=== PATIENT | male | born 1970 | race Caucasian/White ===

== ENCOUNTER → 2017-05-29 | Outpatient (CLI) | payer BC ==
[2017-05-29 13:10] LABS: HCT 42.5 % (39.0-53.0); HGB 13.1 gm/dL (13.0-17.5); Hypochromasia Slight; MCH 25.8 pg (25.0-35.0); MCHC 30.7 g/dL (31.0-37.0); MCV 84.1 fL (80.0-100.0); Mean Platelet Volume 8.6; Platelet Count 140 k/uL (150-450); RBC 5.06 m/uL (4.30-5.90); RDW 13.6 % (11.5-15.5); WBC 5.6 k/uL (3.8-10.6)
[2017-05-29 13:21] LABS: ALT 46 U/L (21-72); AST 26 U/L (17-59); Albumin 3.8 g/dL (3.5-5.0); Alkaline Phosphatase 68 U/L (38-126); Anion Gap 11 mmol/L; Blood Urea Nitrogen 30 mg/dL (9-20); Calcium 9.3 mg/dL (8.4-10.2); Carbon Dioxide 30 mmol/L (22-30); Chloride 101 mmol/L (98-107); Glucose 132 mg/dL (74-99); Potassium 3.8 mmol/L (3.5-5.1); Sodium 142 mmol/L (137-145); Total Bilirubin 1.6 mg/dL (0.2-1.3); Total Protein 6.5 g/dL (6.3-8.2)
[2017-05-29 14:39] LABS: Erythrocyte Sedimentation Rate 3 mm/hr (0-15)
[2017-05-29 20:30] LABS: Gliadin AB IgA, Unit 1.8 U/mL
[2017-05-30 11:31] LABS: Anti-Endomysial IgA Antibody <1:10 Titer (<1:10)
[2017-06-03 16:25] LABS: Selenium 95 mcg/L (63-160)
== END | disposition home or self-care (01) ==
LOC: LABWHC1 12:24
PROVIDERS: ATTEND Internal Medicine
DX: I42.9 Cardiomyopathy, unspecified (principal)
CPT/HCPCS: 36415; 80053; 82784; 83516; 84255; 84443; 85027; 85652; 86038; 86255

== ENCOUNTER → 2017-06-13 | Outpatient (CLI) | payer BC ==
[2017-06-13 09:44] LABS: Anion Gap 12 mmol/L; Blood Urea Nitrogen 26 mg/dL (9-20); Carbon Dioxide 27 mmol/L (22-30); Chloride 106 mmol/L (98-107); Sodium 145 mmol/L (137-145)
== END | disposition home or self-care (01) ==
LOC: LABWHC1 09:01
PROVIDERS: ATTEND Internal Medicine Cardiovascular Disease
DX: I50.20 Unspecified systolic (congestive) heart failure (principal)
CPT/HCPCS: 36415; 80051; 82565; 84520

== ENCOUNTER → 2017-06-27 | Outpatient (CLI) | payer BC ==
[2017-06-27 14:51] LABS: Albumin 4.7 g/dL (3.5-5.0); Anion Gap 16 mmol/L; Blood Urea Nitrogen 35 mg/dL (9-20); Calcium 10.2 mg/dL (8.4-10.2); Carbon Dioxide 29 mmol/L (22-30); Chloride 101 mmol/L (98-107); Glucose 116 mg/dL (74-99); Potassium 4.5 mmol/L (3.5-5.1); Sodium 146 mmol/L (137-145)
== END | disposition home or self-care (01) ==
LOC: LABWHC1 14:09
PROVIDERS: ATTEND Internal Medicine Cardiovascular Disease
DX: I10 Essential (primary) hypertension (principal)
CPT/HCPCS: 36415; 80069; 83880

== ENCOUNTER → 2017-12-18 | Outpatient (CLI) | payer BC ==
--- NOTE | 2017-12-18 20:02 | CONS ---
CONSULTATION DATE OF SERVICE: 12/18/2017 A 47-year-old gentleman has been evaluated in the [facility] for obstructive sleep apnea-hypopnea syndrome. HISTORY OF PRESENT ILLNESS/SLEEP-WAKE EVALUATION: Patient has been diagnosed with obstructive sleep apnea about 20 years ago. At that time was documented with severe sleep apnea according to patient, was started on treatment with CPAP and used it for several years, but then had difficulties related to the pressure and temperature of the air and stopped using it about 15 years ago. Presently his sleep schedule on weekdays from around 10:00 p.m. to 4:00 a.m. and on weekends from about 10:00 p.m. until 7:00 a.m. He does not have any problem with falling asleep. No TV in bedroom. He wakes up from sleep once with nocturia. He snores, has episodes of stopped breathing during sleep. In the morning he wakes up tired, falling asleep during the day and episodes of irritability, sexual dysfunction. [place] Sleepiness Scale today is significantly increased to 16. PAST MEDICAL HISTORY: Positive for cardiomyopathy with ejection fraction decreased to around 15 about May 2017. Presently his ejection fraction improved to around 30%, diabetes mellitus, acid reflux. PAST SURGICAL HISTORY: Cholecystectomy, tonsillectomy, adenoidectomy. MEDICATIONS: Insulin, Humalog, Jardiance, metformin, losartan, omeprazole, metoprolol, spironolactone, furosemide. SOCIAL HISTORY: Negative for smoking or using alcohol. FAMILY HISTORY: Heart problems, sleep apnea, pneumonia, ulcers, acid reflux, diabetes, mental illness. REVIEW OF SYSTEMS: Snoring episodes of stopped breathing during sleep, awakenings from sleep, swelling of the legs. No shortness of breath while walking at the present time. No episodes of chest pain. PHYSICAL EXAM: GENERAL gentleman without distress. VITAL SIGNS BP 119/71, HR 69, RR 14, height 6 inches, weight 323, body mass index 36.3, temperature 97.7, oxygen saturation on room air 99%. HEENT PERRLA, EOMI, evaluation of oropharynx showed extremely low position of soft palate. NECK Supple, no JVD. Thyroid is not palpable. LUNGS Clear to percussion and to auscultation. Good air exchange. No wheezing or rhonchi. HEART S1, S2 regular. No murmurs, gallops, or rubs. ABDOMEN Soft and nontender. Bowel sounds are present. No organomegaly appreciated. EXTREMITIES No clubbing or cyanosis. APPLICATION LEAD Awake, alert, and oriented X3. Cranial nerves 2 to 7 intact. There is no fasciculation or atrophy. noted. No focal deficits observed. IMPRESSION: 1. History of severe sleep apnea diagnosed about 20 years ago. 2. The patient snores, has episodes of stopped breathing during the sleep, extremely low position of soft palate, wide neck, daytime sleepiness, [place] Sleepiness Scale 16, obstructive sleep apnea-hypopnea syndrome. 3. History no cardiomyopathy with decreased ejection fraction presently at 40%. Ejection fraction in May of 2017 was only 15. 4. Mild obesity, BMI 36.3. 5. Diabetes mellitus. 6. Acid reflux. 7. Status post cholecystectomy. 8. Status post tonsillectomy and adenoidectomy. PLAN: 1. Polysomnography for evaluation of patient's breathing during sleep. 2. Slow CPAP titration possibly preferable BiPAP. 3. Preferable position during sleep on the side. 4. No driving if patient feels any sleepiness. 5. I will see patient for follow up visit to explain results of testing and following plan. Thank you very much for referring this patient for consultation. Sincerely, Tristan Mosley MD, PhD, FAASM Diplomat of [place] [employer] [place] [employer] App[employer] Sales Leader of [facility] [place] MMANSHUL / TOÑO: [id number] /
== END | disposition home or self-care (01) ==
LOC: SLEEP 15:38
PROVIDERS: ATTEND Internal Medicine
DX: G47.33 Obstructive sleep apnea (adult) (pediatric) (principal); E66.9 Obesity, unspecified; E11.9 Type 2 diabetes mellitus without complications; K21.9 Gastro-esophageal reflux disease without esophagitis; Z90.49 Acquired absence of other specified parts of digestive tract; Z90.89 Acquired absence of other organs; Z68.34 Body mass index [BMI] 34.0-34.9, adult; Z99.89 Dependence on other enabling machines and devices; Z79.4 Long term (current) use of insulin; Z79.84 Long term (current) use of oral hypoglycemic drugs; Z79.899 Other long term (current) drug therapy
CPT/HCPCS: 99211

== ENCOUNTER → 2018-03-18 | Outpatient (CLI) | payer BC ==
--- NOTE | 2018-03-18 18:23 | PN ---
PROGRESS NOTE DATE OF SERVICE: 03/18/2018 48-year-old gentleman has been followed in the [facility] for treatment of severe obstructive sleep apnea-hypopnea syndrome. Recently patient had a home sleep apnea test which showed apnea-hypopnea index 76 with oxygen saturation of 60% and the patient had CPAP and BiPAP titration. I discussed results of sleep studies with the patient in detail. Subsequently, patient received his BiPAP unit and started to use it, but while using full-face mask he develop discomfort and broken skin on the bridge of his nose. His mask was exchanged with a full-face mask but this mask again pressed on the bridge of his nose and the patient was not able to use the equipment very well secondary to that. Several nights when he used equipment he slept better with that and feels better during the day. I checked his BiPAP unit, maximum IPAP pressure 17 with the EPAP started from 8, pressure support is 4, the patient used it for 4 nights and 1 night more than 4 hours. Average usage is 3.1 hours. Pressure range 15.3 or 11.3. Leak is only 5 L/minute. Apnea-hypopnea index is 3.9, which is normal range. [place] Sleepiness Scale today is 11. MEDICATIONS: Humalog, Jardiance, metformin, losartan, omeprazole, metoprolol, spironolactone and Furosemide. PHYSICAL EXAM: Patient in no distress. BP 115/68, HR 66, RR 18, weight 331.6, temperature 97.7. Oropharynx extremely low position of soft palate. Abdomen slightly obese. Neck Supple, no JVD. Thyroid is not palpable. LUNGS Clear to percussion and to auscultation. Good air exchange. No wheezing or rhonchi. HEART S1, S2 regular. No murmurs, gallops, or rubs. ABDOMEN: Slightly obese. Soft and nontender. Bowel sounds are present. No organomegaly appreciated. EXTREMITIES No clubbing or cyanosis. DIRECTOR INTELLIGENCE ANALYSIS PROGRAMS Awake, alert, and oriented X3. Cranial nerves 2 to 7 intact. There is no fasciculation or atrophy. noted. No focal deficits observed. IMPRESSION: 1. Severe obstructive sleep apnea-hypopnea syndrome; apnea-hypopnea index 76 with oxygen saturation of 60%, breathing normalized for treatment with BiPAP, but patient was not able to use BiPAP equipment secondary to mask problems. 2. Mild obesity. 3. History of cardiomyopathy. 4. Periodic limb movements. 5. Acid reflux. 6. Status post cholecystectomy. 7. Status post tonsillectomy and adenoidectomy. PLAN: 1. Patient was fitted with [employer] full-face mask which goes from the nose from below and subsequently does not irritate the nasal bridge. Patient likes this mask. I will write a prescription for this mask and we will try to get patient this mask. 2. The patient should continue to use his BiPAP equipment every night for the whole night. 3. Watching and losing weight. 4. Sleep hygiene with regular time in bed for at least 8 hours. 5. No driving if feeling sleepiness. Thank you very much for allowing me to participate in the management of your patient. Sincerely, Tristan Mosley MD, PhD, FAASM Diplomat of [employer] [place] [employer] [place] [employer] Electronic Scale Assembler And Tester of [facility] [place] ERLINL / CANDICEN: [id number] /
== END ==
LOC: SLEEP 15:55
PROVIDERS: ATTEND Internal Medicine
DX: G47.33 Obstructive sleep apnea (adult) (pediatric) (principal); E66.9 Obesity, unspecified; G47.61 Periodic limb movement disorder; K21.9 Gastro-esophageal reflux disease without esophagitis; I42.9 Cardiomyopathy, unspecified; Z90.49 Acquired absence of other specified parts of digestive tract; Z90.89 Acquired absence of other organs; Z99.89 Dependence on other enabling machines and devices; Z79.4 Long term (current) use of insulin; Z79.899 Other long term (current) drug therapy

== ENCOUNTER → 2019-12-27 | Outpatient (CLI) | payer BC ==
--- NOTE | 2019-12-27 18:10 | US ---
EXAMINATION TYPE: US venous doppler duplex LE DATE OF EXAM: 12/27/2019 2:56 PM COMPARISON: NONE CLINICAL HISTORY: 49-year-old male E11.621 Type 2 DM foot ulcer. Lt great toe ulcer x 1 1/2 months; n o varicose veins visualized SIDE PERFORMED: Bilateral 1) Color flow is present and patency is documented in the following vessels. No DVT or SVT is noted . Common Femoral Vein Deep Femoral Vein Femoral Vein Popliteal Vein Greater Saph Vein Upper Small Saph Vein 2) There is venous reflux noted at the following venous levels: none 3) Incompetent perforators are noted at these levels: none IMPRESSION: No evidence for DVT within the bilateral lower extremities imaged from the groin to the knees. No venous reflux identified in the lower extremities.
--- NOTE | 2019-12-29 10:19 | P.ARTDOP ---
Arterial Doppler LOWER EXTREMITY ARTERIAL DOPPLER: DATE OF SERVICE: 12/27/2019 Reason for study: Ulcer left great toe. Doppler waveforms: Multiphasic bilaterally throughout. Pulse volume recording: []. Pressure gradients: None. Ankle-brachial indices:. Elevated bilaterally. Toe brachial indices: 0.85 on the right, greater than 1 on the left. Toe wa veforms on both sides are good Impression: Normal study in regards to flow. I ankle pressures suggest calcific wall disease without hemodynamic consequence..
== END | disposition home or self-care (01) ==
LOC: RADUSWWP 14:03
PROVIDERS: ATTEND Nurse Practitioner Family
DX: E11.621 Type 2 diabetes mellitus with foot ulcer (principal)
CPT/HCPCS: 93922; 93970

== ENCOUNTER → 2020-10-17 | Outpatient (CLI) | payer BC ==
[2020-10-18 00:47] LABS: Basophils # (A) 0.04 X 10*3/uL (0.00-0.10); Basophils % (A) 0.6 %; Eosinophils % (A) 1.6 %; HCT 43.5 % (39.6-50.0); Lymphocytes # (A) 1.44 X 10*3/uL (0.90-5.00); Lymphocytes % (A) 22.6 %; MCH 27.7 pg (27.0-32.0); MCHC 32.2 g/dL (32.0-37.0); MCV 86.1 fL (80.0-97.0); Mean Platelet Volume 11.1 fL (9.5-12.2); Monocytes # (A) 0.42 X 10*3/uL (0.20-1.00); Monocytes % (A) 6.6 %; Neutrophils # (A) 4.37 X 10*3/uL (1.80-7.70); Neutrophils % (A) 68.4 %; Platelet Count 212 X 10*3/uL (140-440); RBC 5.05 X 10*6/uL (4.40-5.60); RDW 14.2 % (11.5-14.5); WBC 6.38 X 10*3/uL (4.50-10.00)
[2020-10-18 07:01] LABS: African American GFR (CKD) 99.8 (60.0-200.0); Albumin 4.4 g/dL (3.80-4.90); Albumin/Globulin Ratio 1.83 (1.60-3.17); Anion Gap 9.2 mmol/L (4.00-12.00); Carbon Dioxide 26.8 mmol/L (21.6-31.8); Globulin 2.4 g/dL (1.6-3.3); Non-African American GFR(CKD) 86.2 (60.0-200.0); Potassium 4.2 mmol/L (3.5-5.5); Total Bilirubin 1.4 mg/dL (0.3-1.2); Total Protein 6.8 g/dL (6.2-8.2)
[2020-10-18 10:49] LABS: Hemoglobin A1C 5.7 % (4.0-6.0)
== END | disposition home or self-care (01) ==
LOC: LABWHC1 14:56
PROVIDERS: ATTEND Thoracic Surgery (Cardiothoracic Vascular Surgery)
DX: E11.621 Type 2 diabetes mellitus with foot ulcer (principal); L97.522 Non-pressure chronic ulcer of other part of left foot with fat layer exposed
CPT/HCPCS: 36415; 80053; 83036; 84134; 85025

== ENCOUNTER → 2022-04-16 | Outpatient (CLI) | payer BC ==
--- NOTE | 2022-04-16 15:15 | XR ---
EXAMINATION TYPE: XR foot complete LT DATE OF EXAM: 04/16/2022 COMPARISON: 12/07/2019 HISTORY: Nonhealing ulcer first digit TECHNIQUE: Three views are submitted. FINDINGS: The osseous structures are intact. There is no acute fracture or dislocation. Hypertrophic arthrop athy first MTP. There is diffuse soft tissue edema involving the first digit. Suggestion of a soft ti ssue ulceration along the plantar surface adjacent to the DIP joint. No definite osseous destruction. IMPRESSION: 1. Suspect cellulitis and soft tissue ulcer first digit with no diagnostic evidence of osteomyelitis
== END | disposition home or self-care (01) ==
LOC: RADXRMAIN 14:13
PROVIDERS: ATTEND Internal Medicine
DX: E11.621 Type 2 diabetes mellitus with foot ulcer (principal); L97.522 Non-pressure chronic ulcer of other part of left foot with fat layer exposed

== ENCOUNTER → 2022-04-23 | Outpatient (CLI) | payer BC ==
--- NOTE | 2022-04-23 16:03 | US ---
EXAMINATION TYPE: US venous doppler duplex LE LT DATE OF EXAM: 04/23/2022 1:51 PM COMPARISON: US 12/27/2019 CLINICAL HISTORY: L97.522 NON-PRESSURE CHRONIC ULCER OF OTHER PART O. Non-healing wound left great to e x 3 years SIDE PERFORMED: Left TECHNIQUE: The lower extremity deep venous system is examined utilizing real time linear array sonog aly with graded compression, doppler sonography and color-flow sonography. VESSELS IMAGED: Common Femoral Vein Deep Femoral Vein Greater Saphenous Vein * Femoral Vein Popliteal Vein Small Saphenous Vein * Proximal Calf Veins (* superficial vessels) Grayscale, color doppler, spectral doppler imaging performed of the deep veins of the lower extremiti es. There is normal flow, compressibility, vascular waveforms. Left Leg: Negative for DVT IMPRESSION: No ultrasound evidence for deep venous thrombosis of the left lower extremity.
== END | disposition home or self-care (01) ==
LOC: RADUSWWP 13:28
PROVIDERS: ATTEND Nurse Practitioner Family
DX: E11.621 Type 2 diabetes mellitus with foot ulcer (principal); L97.522 Non-pressure chronic ulcer of other part of left foot with fat layer exposed
CPT/HCPCS: 93922

== ENCOUNTER → 2022-04-30 | Outpatient (CLI) | payer BC ==
[2022-05-01 03:38] LABS: African American GFR (CKD) 87.7 (60.0-200.0); Albumin 4.4 g/dL (3.8-4.9); Anion Gap 10.8 mmol/L (10.00-18.00); Blood Urea Nitrogen 24.2 mg/dL (9.0-27.0); Calcium 9.6 mg/dL (8.7-10.3); Carbon Dioxide 26.2 mmol/L (20.0-27.5); Non-African American GFR(CKD) 75.7 (60.0-200.0); Phosphorus 3.5 mg/dL (2.4-5.1); Potassium 4.4 mmol/L (3.5-5.5)
== END | disposition home or self-care (01) ==
LOC: LABWHC1 15:53
PROVIDERS: ATTEND Internal Medicine Cardiovascular Disease
DX: I42.0 Dilated cardiomyopathy (principal)
CPT/HCPCS: 36415; 80069